=== PATIENT | male | born 1980 | race Caucasian/White ===

== ENCOUNTER 2017-12-04 11:24 | Emergency (ER) | payer SELFPAY ==
[~2017-12-04] VITALS: Ht 162.6 cm; Wt 104.3 kg
--- NOTE | 2017-12-04 12:00 | ED Abdominal Pain ---
General Chief Complaint: Rect Problems Stated Complaint: RECTAL PAIN/CONSTIPATED Source of Information: Patient, Family Exam Limitations: No Limitations History of Present Illness Date Seen by Provider: Dec 04, 2017 Time Seen by Provider: 11:55 Initial Comments Patient is a 37-year-old male who presents to the emergency room with complaints of rectal pain, blood on the toilet paper with wiping, and intermittent constipation for 5 months. He is new to the area from [facility]. He reports that he moved here 2 days ago. And in [place] he had a colonoscopy 10 days ago for this problem. He reports that he had polyps the doctor there was concerned that they may be precancerous and took a sample for testing. He is unsure of the results but wants to get the physician established here. He is accompanied by a brother and his [id number]. Denies any abdominal pain, nausea, vomiting, diarrhea. Timing/Duration: Other Severity/Quality: Mild (5 months) Radiation: No Radiation Associated Symptoms: Denies Symptoms Allergies and Home Medications Allergies Coded Allergies: No Known Drug Allergies (Unverified , 12/04/17) Home Medications No Active Prescriptions or Reported Meds Patient Home Medication List Home Medication List Reviewed: Yes Review of Systems Constitutional: see HPI; No chills, No fever Gastrointestinal: See HPI, Blood Streaked Stools, Constipated, Rectal Bleeding All Other Systems Reviewed Negative Unless Noted: Yes Past Pblypts-Znoxka-Afypkt Hx Past Med/Social Hx: Reviewed Nursing Past Med/Soc Hx Patient Social History Alcohol Use: Denies Use Recreational Drug Use: No Smoking Status: Never a Smoker Recent Foreign Travel: No Contact w/Someone Who Travel: No Past Medical History Surgeries: Yes (colonoscopy) Respiratory: No Cardiac: No Neurological: No Genitourinary: No Gastrointestinal: Yes Polyps, Ulcer Musculoskeletal: No Endocrine: No HEENT: No Cancer: No Integumentary: No Blood Disorders: No Family Medical History Reviewed Nursing Family Hx Physical Exam Vital Signs Vital Signs - First Documented 12/04/17 11:45 Temp 98.2 Pulse 86 Resp 16 B/P (MAP) 122/71 (88) Pulse Ox 98 Capillary Refill : Height/Weight/BMI Height: '" Weight: lbs. oz. kg; BMI Method: General Appearance: WD/WN, no apparent distress Respiratory: chest non-tender, lungs clear, normal breath sounds, no respiratory distress, no accessory muscle use Cardiovascular: regular rate, rhythm, no edema, no gallop, no JVD, no murmur Gastrointestinal: normal bowel sounds, non tender, soft, no organomegaly, no pulsatile mass Rectal: normal exam, normal rectal tone, heme positive stool (fecal occult test was positive. There was no gross blood noted.); No hemorrhoids, No mass; other (examination was completed by myself and assisted by Sulema Camacho RN) Neurologic/Psychiatric: alert, normal mood/affect, oriented x 3 Skin: normal color, warm/dry Progress/Results/Core Measures Results/Orders Lab Results Laboratory Tests Test 12/04/17 12:10 Range/Units White Blood Count 9.5 4.3-11.0 10^3/uL Red Blood Count 5.34 4.35-5.85 10^6/uL Hemoglobin 12.4 L 13.3-17.7 G/DL Hematocrit 39 L 40-54 % Mean Corpuscular Volume 74 L 80-99 FL Mean Corpuscular Hemoglobin 23 L 25-34 PG Mean Corpuscular Hemoglobin Concent 32 32-36 G/DL Red Cell Distribution Width 18.6 H 10.0-14.5 % Platelet Count 412 H 130-400 10^3/uL Mean Platelet Volume 9.1 7.4-10.4 FL Neutrophils (%) (Auto) 64 42-75 % Lymphocytes (%) (Auto) 23 12-44 % Monocytes (%) (Auto) 8 0-12 % Eosinophils (%) (Auto) 6 0-10 % Basophils (%) (Auto) 0 0-10 % Neutrophils # (Auto) 6.0 1.8-7.8 X 10^3 Lymphocytes # (Auto) 2.2 1.0-4.0 X 10^3 Monocytes # (Auto) 0.7 0.0-1.0 X 10^3 Eosinophils # (Auto) 0.5 H 0.0-0.3 10^3/uL Basophils # (Auto) 0.0 0.0-0.1 10^3/uL Sodium Level 139 135-145 MMOL/L Potassium Level 4.4 3.6-5.0 MMOL/L Chloride Level 104 98-107 MMOL/L Carbon Dioxide Level 26 21-32 MMOL/L Anion Gap 9 5-14 MMOL/L Blood Urea Nitrogen 12 7-18 MG/DL Creatinine 0.75 0.60-1.30 MG/DL Estimat Glomerular Filtration Rate > 60 BUN/Creatinine Ratio 16 Glucose Level 93 70-105 MG/DL Calcium Level 9.8 8.5-10.1 MG/DL Corrected Calcium 9.5 8.5-10.1 MG/DL Total Bilirubin 0.3 0.1-1.0 MG/DL Aspartate Amino Transf (AST/SGOT) 14 5-34 U/L Alanine Aminotransferase (ALT/SGPT) 24 0-55 U/L Alkaline Phosphatase 86 40-136 U/L Total Protein 8.3 H 6.4-8.2 GM/DL Albumin 4.4 3.2-4.5 GM/DL My Orders Orders - [email or web address] Cbc With Automated Diff (12/04/17 11:54) Comprehensive Metabolic Panel (12/04/17 11:54) Fecal Occult Bedside (12/04/17 11:54) Vital Signs/I&O 12/04/17 11:45 Temp 98.2 Pulse 86 Resp 16 B/P (MAP) 122/71 (88) Pulse Ox 98 Progress Progress Note : Time: 13:20 Progress Note I have seen and evaluated the patient. He informed me that he had an appointment with [facility] tomorrow to discuss further care and follow- up from his colonoscopy that he had. He has all the records from [place] but he did not bring them to the emergency room today. I informed him of laboratory findings, fecal occult testing, he agrees with close follow-up and agrees her plans of discharge. Return precautions were given Departure Impression Primary Impression: GI bleed Additional Impression: Rectal bleeding Disposition: 01 HOME, SELF-CARE Condition: Stable/Unchanged Departure-Patient Inst. Decision time for Depature: 13:21 Referrals: CHARO VALENTIN XAVIER M MD NO,LOCAL PHYSICIAN (PCP) Primary Care Physician Patient Instructions: Gastrointestinal Bleeding (DC) Add. Discharge Instructions: Follow-up with Dr. Barreto within 1 week for recheck. Follow up with [facility] as scheduled tomorrow. Call first thing tomorrow morning for an appointment time with Dr. Barreto. I have seen your emergency room records to both physicians. Return back to the emergency room for any worsening symptoms, increased rectal bleeding, pain, nausea, vomiting, or any other concerns as needed. All discharge instructions reviewed with patient and/or family. Voiced understanding. Scripts No Active Prescriptions or Reported Meds Copy Copies To 1: CHARO VALENTIN DO Copies To 2: JOSE BARRETO MD, TRAVIS Dec 04, 2017 11:59
[2017-12-04 12:22] LABS: BASOPHILS % (AUTO) 0 % (0-10); EOSINOPHILS # (AUTO) 0.5 10^3/uL (0.0-0.3); EOSINOPHILS % (AUTO) 6 % (0-10); HEMATOCRIT 39 % (40-54); HEMOGLOBIN 12.4 G/DL (13.3-17.7); LYMPHOCYTES # (AUTO) 2.2 X 10^3 (1.0-4.0); LYMPHOCYTES % (AUTO) 23 % (12-44); MEAN CORPUSCULAR HEMOGLOBIN 23 PG (25-34); MEAN CORPUSCULAR HGB CONC 32 G/DL (32-36); MEAN CORPUSCULAR VOLUME 74 FL (80-99); MEAN PLATELET VOLUME 9.1 FL (7.4-10.4); MONOCYTES # (AUTO) 0.7 X 10^3 (0.0-1.0); MONOCYTES % (AUTO) 8 % (0-12); NEUTROPHILS % (AUTO) 64 % (42-75); PLATELET COUNT 412 10^3/uL (130-400); RED BLOOD COUNT 5.34 10^6/uL (4.35-5.85); RED CELL DISTRIBUTION WIDTH 18.6 % (10.0-14.5); WHITE BLOOD COUNT 9.5 10^3/uL (4.3-11.0)
[2017-12-04 12:44] LABS: ALANINE AMINOTRANSFERASE 24 U/L (0-55); ALBUMIN 4.4 GM/DL (3.2-4.5); ALKALINE PHOSPHATASE 86 U/L (40-136); BILIRUBIN,TOTAL 0.3 MG/DL (0.1-1.0); BUN/CREATININE RATIO 16; CALCIUM 9.8 MG/DL (8.5-10.1); CARBON DIOXIDE 26 MMOL/L (21-32); CHLORIDE 104 MMOL/L (98-107); CREATININE SERUM 0.75 MG/DL (0.60-1.30); GFR ESTIMATED > 60; GLUCOSE 93 MG/DL (70-105); POTASSIUM 4.4 MMOL/L (3.6-5.0); SODIUM 139 MMOL/L (135-145); TOTAL PROTEIN 8.3 GM/DL (6.4-8.2)
[2017-12-04 13:43] VITALS: BP 128/65
== END 2017-12-04 13:43 | disposition home or self-care (01) ==
LOC: ER 11:25
DX: K92.2 Gastrointestinal hemorrhage, unspecified (principal); Z87.19 Personal history of other diseases of the digestive system
CPT/HCPCS: 36415; 80053; 85025; 99283

== ENCOUNTER 2017-12-20 10:14 | Inpatient (IN) | payer OTHER ==
[~2017-12-20] VITALS: Ht 170.2 cm; Wt 119.3 kg
[2017-12-20] MEDS ORDERED: ceFAZolin 2 GM IV Premixed 50 ML IV ONE (10:30)
[2017-12-20] MEDS ORDERED: metroNIDAZOLE 500MG/100ML IVPB 100 ML IV ONE (10:30)
[2017-12-20] MEDS ORDERED: LIDOCAINE/EPI 1%-1:200,000 (XYLOCAINE) 10 ML VIAL ONE (10:42)
[2017-12-20] MEDS: LACTATED RINGERS 1,000 ML IV PRN ×4 (10:45→15:00)
[2017-12-20] MEDS ORDERED: proPOfol 200 MG/20 ML (DIPRIVAN) VIAL IV ONE (10:52)
[2017-12-20] MEDS ORDERED: LIDOCAINE PF 2% 5 ML (XYLOCAINE) VIAL ONE (10:52)
[2017-12-20] MEDS ORDERED: ROCURONIUM 10 MG/ML 5 ML SYRINGE IV ONE ×2 (10:52→13:14)
[2017-12-20] MEDS ORDERED: LACTATED RINGERS 1,000 ML IV ONE ×4 (10:52→14:52)
[2017-12-20] MEDS ORDERED: fentaNYL INJECTION 100 MCG/2 ML AMP ONE ×2 (10:52→14:46)
[2017-12-20] MEDS ORDERED: MIDAZOLAM 2 MG/2 ML (VERSED) VIAL ONE (10:52)
[2017-12-20] MEDS ORDERED: ONDANSETRON 4 MG/2 ML (SDV) Z0FRAN ONE ×2 (10:52→15:24)
[2017-12-20] MEDS ORDERED: DEXAMETHASONE 10 MG/ML (DECADRON) 1 ML VIAL ONE (10:54)
[2017-12-20] MEDS ORDERED: SEVOFLURANE (ULTANE) 15 ML INHAL SOLN ONE ×13 (10:54→14:52)
--- NOTE | 2017-12-20 11:54 | Progress Note-Pre Operative ---
Pre-Operative Progress Note H&P Reviewed The H&P was reviewed, patient examined and no changes noted. Time Seen by Provider: 11:49 Date H&P Reviewed: Dec 20, 2017 Time H&P Reviewed: 11:52 Pre-Operative Diagnosis: Suspected Left sided colon CA FRANCES MATTHEWS DO Dec 20, 2017 11:54
[2017-12-20] MEDS ORDERED: GLYCOPYRROLATE 0.2 MG/ML (ROBINUL) 2 ML VIAL ONE (14:48)
[2017-12-20] MEDS ORDERED: NEOSTIGMINE 1 MG/ML 5 ML SYRINGE ONE (14:48)
[2017-12-20] MEDS ORDERED: HYDROmorphone 2 MG/ML VIAL (DILAUDID) ONE (15:24)
[2017-12-20] MEDS ORDERED: ROPIVACAINE 5MG/ML 30ML VIAL ONE (15:28)
--- NOTE | 2017-12-20 15:58 | Progress Note-Post Operative ---
Post-Operative Progess Note Surgeon (s)/Medical Practice Administrator (s) Surgeon FRANCES MATTHEWS DO Medical Practice Administrator: Amilcar Pre-Operative Diagnosis Suspected Left sided colon CA Post-Operative Diagnosis Same pending pathology Procedure & Operative Findings Date of Procedure 12/20/17 Procedure Performed/Findings 1. Colonoscopy 2. Lap Hand assisted Colectomy, switched to Open LAR with primary anastomosis Anesthesia Type GET Estimated Blood Loss Estimated blood loss (mL): 100ml Specimens/Packing Specimens Removed sigmoid colon and portion of rectum FRANCES MATTHEWS DO Dec 20, 2017 15:58
[2017-12-20] MEDS ORDERED: HYDROmorphone 2 MG/ML VIAL (DILAUDID) IV ONE (16:00)
[2017-12-20] MEDS ORDERED: ceFAZolin 2 GM IV Premixed 50 ML IV SCH (16:00)
[2017-12-20] MEDS ORDERED: metroNIDAZOLE 500MG/100ML IVPB 100 ML IV SCH (16:00)
[2017-12-20] MEDS ORDERED: fentaNYL INJECTION 100 MCG/2 ML AMP IVP ONE (16:00)
[2017-12-20] MEDS ORDERED: ONDANSETRON 4 MG/2 ML (SDV) Z0FRAN IVP PRN ×2 (16:00)
[2017-12-20] MEDS ORDERED: MEPERIDINE (DEMEROL) INJ 50 MG/ML IVP ONE (16:00)
[2017-12-20] MEDS: KETOROLAC 30 MG/ML VIAL IVP PRN ×2 (16:13→22:07)
[2017-12-20 16:50] VITALS: BP 131/67
[2017-12-20] MEDS: LACTATED RINGERS 1,000 ML IV SCH ×2 (17:59→18:12)
[2017-12-20] MEDS ORDERED: morphine INJ 4 MG/ML 1 ML (VIAL/SYRINGE) ONE (18:03)
[2017-12-20] MEDS ORDERED: ENOXAPARIN 40 MG/0.4 ML (LOVENOX) SYR SC SCH (18:30)
[2017-12-20 19:10] VITALS: BP 120/67
[2017-12-20] MEDS: ceFAZolin 2 GM IV Premixed 50 ML IV SCH (20:04)
[2017-12-20] MEDS: morphine INJ 10 MG/ML 1ML (SYR OR VIAL) IVP PRN (20:07)
[2017-12-20] MEDS: metroNIDAZOLE 500MG/100ML IVPB 100 ML IV SCH (21:00)
[2017-12-21 00:08] VITALS: BP 117/59
[2017-12-21] MEDS: morphine INJ 10 MG/ML 1ML (SYR OR VIAL) IVP PRN (03:15)
[2017-12-21] MEDS: ceFAZolin 2 GM IV Premixed 50 ML IV SCH (03:15)
[2017-12-21] MEDS: LACTATED RINGERS 1,000 ML IV SCH ×3 (03:17→21:02)
[2017-12-21] MEDS: metroNIDAZOLE 500MG/100ML IVPB 100 ML IV SCH (03:50)
[2017-12-21 04:08] VITALS: BP 121/60
[2017-12-21] MEDS: KETOROLAC 30 MG/ML VIAL IVP PRN ×3 (06:31→18:40)
[2017-12-21 08:00] VITALS: BP 105/55
[2017-12-21] MEDS: PANTOPRAZOLE 40 MG (PROTONIX) VIAL IVP SCH (09:03)
[2017-12-21] MEDS: ACETAMINOPHEN 500 MG TAB (TYLENOL) PO PRN ×2 (09:04→16:47)
--- NOTE | 2017-12-21 11:46 | Anesthesia-General Post-Op ---
General Patient Condition Mental Status/LOC: Same as Preop Cardiovascular: Satisfactory Nausea/Vomiting: Absent Respiratory: Satisfactory Pain: Controlled Complications: Absent Post Op Complications Complications None Follow Up Care/Instructions Patient Instructions None needed. Anesthesia/Patient Condition Patient Condition Patient is doing well, no complaints, stable vital signs, no apparent adverse anesthesia problems. No complications reported per nursing. SHE BRADSHAW CRNA Dec 21, 2017 11:46
[2017-12-21 12:00] VITALS: BP 131/64
[2017-12-21 16:00] VITALS: BP 100/55
[2017-12-21] MEDS ORDERED: ENOXAPARIN 40 MG/0.4 ML (LOVENOX) SYR SC SCH (16:00)
--- NOTE | 2017-12-21 16:17 | Progress Note ---
Subjective Time Seen by Provider: 10:33 Subjective/Events-last exam Pt seen and examined, states he has abdominal pain. Tolerating liquids, no flatus or BM. His constantino was removed and has not had much output. Pain is only moderately controlled. Review of Systems General: No Chills, No Night Sweats Pulmonary: No Dyspnea, No Cough Objective Exam Vital Signs Date Time Temp Pulse Resp B/P (MAP) Pulse Ox O2 Delivery O2 Flow Rate FiO2 12/21/17 16:00 99.2 89 18 100/55 (70) 95 Room Air 12/21/17 12:00 97.3 70 20 131/64 (86) 97 Room Air 12/21/17 08:00 98.3 78 20 105/55 (72) 93 Room Air 12/21/17 08:00 Room Air 12/21/17 07:21 98 Nasal Cannula 3.00 12/21/17 04:08 98.0 83 18 121/60 (80) 96 Room Air 12/21/17 00:08 97.7 75 18 117/59 (78) 98 Room Air 12/20/17 20:00 Nasal Cannula 4.00 12/20/17 19:10 97.1 78 16 120/67 (84) 97 Room Air 12/20/17 17:00 Nasal Cannula 4.00 12/20/17 16:50 97.3 88 16 131/67 (88) 98 Room Air I & O 12/21/17 07:00 Intake Total 5450 ml Output Total 1150 ml Balance 4300 ml Capillary Refill : Less Than 3 Seconds General Appearance: WD/WN, Mild Distress Respiratory: Lungs Clear, Normal Breath Sounds, No Accessory Muscle Use, No Respiratory Distress Cardiovascular: Regular Rate, Rhythm Gastrointestinal: soft, tenderness (diffusely, but more at incision) Assessment/Plan Assessment/Plan Assessment/Plan S/P LAR for Suspected Colon CA Continue IVF, pain control, anti-emetics. Encourage IS and ambulation. Continue clears and ensure. Await return of bowel fxn. Clinical Quality Measures DVT/VTE Risk/Contraindication: Risk Factor Score Per Nursin RFS Level Per Nursing on Admit: 4+=Very High FRANCES MATTHEWS DO Dec 21, 2017 16:17
[2017-12-21] MEDS: ENOXAPARIN 40 MG/0.4 ML (LOVENOX) SYR SC SCH (16:47)
[2017-12-21 19:32] VITALS: BP 111/58
[2017-12-22] MEDS: KETOROLAC 30 MG/ML VIAL IVP PRN ×3 (00:11→16:08)
[2017-12-22 00:35] VITALS: BP 116/63
[2017-12-22 04:38] VITALS: BP 126/60
[2017-12-22] MEDS: ENOXAPARIN 40 MG/0.4 ML (LOVENOX) SYR SC SCH ×2 (04:44→16:09)
[2017-12-22] MEDS: ACETAMINOPHEN 500 MG TAB (TYLENOL) PO PRN ×3 (04:44→20:41)
--- NOTE | 2017-12-22 07:21 | OPERATIVE REPORT ---
DATE OF SERVICE: 12/20/2017 PREOPERATIVE DIAGNOSES: 1. Suspected left colon cancer. 2. Umbilical hernia. POSTOPERATIVE DIAGNOSES: 1. Suspected left colon cancer. 2. Umbilical hernia. 3. Pending pathology. PROCEDURES: 1. Colonoscopy. 2. Laparoscopic hand-assisted low anterior resection switched to open. SURGEON: Frances Page DO REGIONAL OPERATIONS DIRECTOR: Don Fitzgerald DO ANESTHESIA: General endotracheal tube. SPECIMEN: Left colon. BLOOD LOSS: Approximately 100 mL. FLUIDS: Per anesthesia. POSTOPERATIVE CONDITION: Stable. INDICATION FOR PROCEDURE: The patient is a 37-year-old male who came from [place] where he had some confusing information. He was told that he had cancer, he did not have cancer and then he had precancer, but he did have a pathology diagnosis of cancer. So, it was elected to do a colonoscopy first prior to most likely a colon resection because the patient also thought that the colonoscopy was not able to get by a mass. FINDINGS: The patient had a large ulcerating mass in the left colon looked to be about 20 cm from the anal verge. I was able to get the colonoscopy all the way to the right side, did not see any other synchronous lesions or large polyps. The patient had a left colon removed down to the retroperitoneal reflection. This is a low anterior resection. PROCEDURE NOTE: After informed consent was obtained, the patient was brought to the operating room. He was intubated and then put on to his left side to do a colonoscopy. I inserted the scope, pushed in about 20 cm, saw an ulcerating lesion, which went for about 10 cm, was able to barely get pass this and then pushed all the way to the cecum, took a picture of appendiceal orifice, noted the ileocecal valve and then slowly withdrew the scope, looking at up the ascending colon to hepatic flexure, down the transverse colon to the splenic flexure into the descending colon and then down at about 30 cm saw the top of this mass and then at about 20 cm saw the bottom of this mass, did not really see any other diverticula, possibly some small internal hemorrhoids. Removed the scope and then proceeded to the colon resection. The patient was placed in lithotomy position. His belly was sterilely prepped and draped in normal fashion. Made an incision through the midline right just around the umbilicus. He did have an incarcerated umbilical hernia, went down to the skin into the subcutaneous tissue, deepened down to subcutaneous tissue with Bovie electrocautery down to fascia. Fascia incised with Bovie electrocautery, then able to get in the belly, moved the intestine out of the way. Placed the port in the right lower quadrant using [employer] system, first beginning an incision in the abdominal wall with a #15 blade, carried down through the skin and then advancing the VersaStep needle under direct visualization, watched it come in and then placed the 12 mm port. Then placed the hand port and wound protector in the midline and then placed the GelPort and created pneumoperitoneum and placed another 12 mm port in the left upper quadrant under direct visualization. At this point, I then placed my hand in the abdomen and I could feel the mass, went about 6 or 8 cm above this, and started dissecting under the colon, grasping the mesentery with LigaSure, clamping, coagulating and transecting, able to get a hold around this area and then placed an Endo-MICHELLE 60 mm across this colon, clamped and fired thereby transecting this. There was lot of fat around the colon. It was very difficult to visualize, tried coming down below the mass. He had some adhesions from this mass, able to get around down below almost right at the retroperitoneal reflection. [place] like I got under the colon and placed another MICHELLE across this. Looked like we had a good seal and then started taking the rest of the colon off coming across the mesentery with the LigaSure, clamping, coagulating and transecting coming down trying to stay midline. There were some adhesions in the right, these were carefully pushed away with blunt dissection, continued to come across the mesentery to free up this portion of colon in a stepwise fashion clamping, coagulating and transecting. Unfortunately, as I got down lower, noted a portion of intestine that was open and it appeared that when we had placed at the distal MICHELLE, it had ripped the intestine. At this point, I then elected to make the incision bigger and increased it from down towards the pubis to then do an open incision, continued to take off the colon with the LigaSure, removed it. Once we were able remove it, then able to grasp this part of the colon and throw a contour stapler across. Made sure all sides were cleared and then clamped and fired and then pulled the portion that had split open through this so that we got all of this and removed this, passed the colon off the table and sent to pathology. Did a leak test of the lower stump by placing a proctoscope and then blowing air. Unfortunately, it leaked, but able to then see this, visualize it and close it with 2-0 Vicryl pop-offs. Three sutures were used to close it. Leak tested it again and there was no leak. At this point, then went to the portion of sigmoid colon and descending colon was very floppy in this area, felt we could get this all the way down into the pelvis. So placed a pursestring applicator across this proximal portion of colon, clamped and fired creating a pursestring cut off the distal portion and then able to open this up and place the anvil into this proximal portion and tied the intestine around this anvil by the pursestring previously created. Dr. Fitzgerald then went down below and dilated with a 25, 28 and 31 dilator and then he advanced the ILS 29 stapler to the stump, could see this and then brought out the trocar through the stump. We then connected the anvil to the trocar, tightened this down all the way, held for 30 seconds then fired, held 20 seconds and then he turned 3/4 turn and then pulled this out gently. At this point, we then leak tested, unfortunately there was a leak on top, if you are looking straight down, the most anterior part, closed this with two 3-0 Vicryl pop-offs. Checked and then we found a leak at a 9 o'clock position if you are looking from below, used some more 3-0 Vicryl pop-offs and then found one more area with some very small air bubbles leaking out, closed with 3-0 Vicryl pop-offs, leak tested and finally no air bubbles were seen. The anastomosis was not on any pull, it was very loose and easily attached. Copiously irrigated with warm normal saline, suctioned this out, brought the omentum down into the pelvis and at this point then elected to close the incision, removed the 2 mm trocar ports, closed the midline incision with a #1 double stranded PDS suture, one from the superior portion and one from the inferior portion, running together and meet in the middle and then tying, and thus also repairing the umbilical hernia primarily with sutures. I then closed the skin with marian. I then closed the two 11 mm trocar port incision with marian as well. Area was cleaned and dried, dressing was placed and the patient then transferred to recovery room in stable condition. Sponge, instruments and needle counts correct at the end of the case. Job ID: [id number] DocumentID: [id number] Dictated Date: 12/21/2017 18:35:35 Surveillance Investigator Date: 12/22/2017 01:10:18 Dictated By: FRANCES PAGE DO
[2017-12-22 08:00] VITALS: BP 120/66
[2017-12-22] MEDS: PANTOPRAZOLE 40 MG (PROTONIX) VIAL IVP SCH (08:20)
[2017-12-22] MEDS: morphine INJ 10 MG/ML 1ML (SYR OR VIAL) IVP PRN (11:28)
[2017-12-22 12:00] VITALS: BP 127/57
[2017-12-22 16:15] VITALS: BP 121/67
--- NOTE | 2017-12-22 17:18 | Progress Note ---
Subjective Time Seen by Provider: 16:33 Subjective/Events-last exam Pt seen and examined, had flatus today and is tolerating clears. Only taking toradol and tylenol. Review of Systems General: No Chills, No Night Sweats Pulmonary: No Dyspnea, No Cough Cardiovascular: No: Chest Pain, Palpitations Gastrointestinal: No: Nausea, Vomiting Objective Exam Vital Signs Date Time Temp Pulse Resp B/P (MAP) Pulse Ox O2 Delivery O2 Flow Rate FiO2 12/22/17 16:15 98.3 89 20 121/67 (85) 97 Room Air 12/22/17 12:00 98.9 81 20 127/57 (80) 96 Room Air 12/22/17 08:00 97.8 83 20 120/66 (84) 96 Room Air 12/22/17 04:38 98.3 77 20 126/60 (82) 95 Room Air 12/22/17 00:35 98.6 89 20 116/63 (80) 93 Room Air 12/21/17 20:45 Room Air 12/21/17 19:32 98.8 83 20 111/58 (75) 93 Room Air I & O 12/22/17 07:00 Intake Total 2555 ml Output Total 775 ml Balance 1780 ml Capillary Refill : Less Than 3 Seconds General Appearance: WD/WN, Mild Distress Respiratory: Lungs Clear, Normal Breath Sounds, No Accessory Muscle Use, No Respiratory Distress Cardiovascular: Regular Rate, Rhythm Gastrointestinal: soft, tenderness (diffusely, but more at incision), other ( incisions are clean, dry, and intact) Assessment/Plan Assessment/Plan Assessment/Plan S/P LAR for Colon CA Continue IVF, pain control, anti-emetics. Encourage IS and ambulation. Will start regular diet, plan to d/c home in am. Clinical Quality Measures DVT/VTE Risk/Contraindication: Risk Factor Score Per Nursin RFS Level Per Nursing on Admit: 4+=Very High FRANCES MATTHEWS DO Dec 22, 2017 17:18
[2017-12-22] MEDS: LACTATED RINGERS 1,000 ML IV SCH ×2 (18:40→19:26)
[2017-12-22 20:39] VITALS: BP 120/57
[2017-12-23 00:22] VITALS: BP 125/66
[2017-12-23] MEDS: KETOROLAC 30 MG/ML VIAL IVP PRN (03:11)
[2017-12-23] MEDS: ENOXAPARIN 40 MG/0.4 ML (LOVENOX) SYR SC SCH (03:15)
[2017-12-23 04:30] VITALS: BP 126/69
[2017-12-23] MEDS: LACTATED RINGERS 1,000 ML IV SCH (06:19)
[2017-12-23] MEDS: ACETAMINOPHEN 500 MG TAB (TYLENOL) PO PRN ×2 (06:21→13:23)
[2017-12-23 08:00] VITALS: BP 124/75
[2017-12-23] MEDS: PANTOPRAZOLE 40 MG (PROTONIX) VIAL IVP SCH (09:10)
[2017-12-23] MEDS ORDERED: TRAM50TA2 PO (12:42)
--- NOTE | 2017-12-23 12:43 | Discharge Inst-Surgical ---
Discharge Inst-Surgical Depart Medication/Instructions New, Converted or Re-Newed RX: RX Given to Pt/Family Patient Instructions Follow up Appt: Make appointment for 1 week. Instructions: No lifting greater than 10 pounds. No strenuous activity. May shower in 24 hours, no tub bath or soaking. Use incentive spirometer at home as directed. No Smoking Skin/Wound Care: May remove bandages. You need to leave the marian in place; they will get removed in my office. Symptoms to Report: Appetite Changes, Extremity Discoloration, Numbness/Tingling, Swelling Increased , Bleeding Excessive, Eyesight Changes, Pain Increased, Urine Color Change, Constipation(Persistent), Fever over 101 degree F, Pain/Pressure in chest, Urinating Difficulty, Cough Up/Vomit Blood, Heart Beat Irreg/Pounding, Pain/ Pressure in jaw, Cramps in feet or legs, Lightheadedness, Pain/Pressure in shoulder, Diarrhea(Persistent), Memory Changes Suddenly, Questions/Concerns, Weight gain consecutive days, Dizziness/Fainting, Nausea/Vomiting, Shortness of Breath, Weight gain over 2 pounds If questions or concerns contact your physician Or seek help at emergency department. Activity Activity as Tolerated: Yes Activity Instructions: Avoid Pulling & Pushing, Avoid Stress to Incision Driving Instructions: No Driving/Refer to Dr. Gonsalez Discharge Diet: No Restrictions (avoid red meat) Diet After 24 Hours: Clear Liquid if Nauseous If Any Problems/Questions/Issu: Contact Your Physician, Go to Emergency Room Skin/Wound Care Infection Signs and Symptoms: Increased Redness, Foul Odor of Wound, Increased Drainage, Skin Itchy or Has a Rash, Increased Swelling, Temperature Above 101 F Bathing Instructions: Shower Stitches/[place]/Dermabond Dis: Care of FRANCES Silveira DO Dec 23, 2017 12:43
--- NOTE | 2017-12-23 12:45 | Progress Note ---
Subjective Date Seen by Provider: Dec 23, 2017 Time Seen by Provider: 12:05 Subjective/Events-last exam Went to see pt and he had just finished eating a solid breakfast. Reports that he has urinated and had a bowel movement today. He denies severe pain, nausea/ vomiting/diarrhea, or fevers/chills. He would like to go home. Review of Systems General: No Chills; Night Sweats; No Fatigue, No Malaise; Appetite HEENT: No Head Aches, No Dysphasia Pulmonary: No Dyspnea, No Cough Cardiovascular: No: Chest Pain, Palpitations, Edema, Lt Headedness Gastrointestinal: Abdominal Pain; No: Nausea, Vomiting, Diarrhea, Constipation , Hematochezia Genitourinary: No Dysuria, No Hematuria Musculoskeletal: No: neck pain, back pain Neurological: No: Weakness, Numbness, Incoordination, Confusion Focused Exam Time of Focused Exam: 12:05 Respiratory: Chest Non Tender, Lungs Clear, Normal Breath Sounds, No Accessory Muscle Use, No Respiratory Distress Cardiovascular: Regular Rate, Rhythm, No Edema, No Gallop, No JVD, No Murmur, Normal Peripheral Pulses Capillary Refill: Less Than 3 Seconds Peripheral Pulses: 2+ Dorsalis Pedis (R), 2+ Left Dors-Pedis (L), 2+ Radial Pulses (R), 2+ Radial Pulses (L) Skin: normal color, warm/dry (incisions clean, dry, intact); No diaphoresis Objective Exam Vital Signs Date Time Temp Pulse Resp B/P (MAP) Pulse Ox O2 Delivery O2 Flow Rate FiO2 12/23/17 08:00 97.8 75 20 124/75 (91) 96 Room Air 12/23/17 04:30 98.3 80 18 126/69 (88) 95 Room Air 12/23/17 00:22 97.3 81 20 125/66 (85) 96 Room Air 12/22/17 20:39 98.3 86 18 120/57 (78) 97 Room Air 12/22/17 20:30 Room Air 12/22/17 16:15 98.3 89 20 121/67 (85) 97 Room Air I & O 12/23/17 07:00 Intake Total 1090 ml Output Total 200 ml Balance 890 ml Capillary Refill : Less Than 3 Seconds General Appearance: WD/WN, Mild Distress Respiratory: Lungs Clear, Normal Breath Sounds, No Accessory Muscle Use, No Respiratory Distress Cardiovascular: Regular Rate, Rhythm Gastrointestinal: soft, tenderness (diffusely, but more at incision), other ( incisions are clean, dry, and intact) Assessment/Plan Assessment/Plan Assessment/Plan S/P LAR for Colon CA Will d/c pt home w/ instructions for f/u in [address] Page's clinic for staple removal and wound check. Pt given strict precautions and diet instructions. Also told pt that once his wounds are healed, likely 4 weeks after his f/u visit , he will need to see Oncology for his treatment of his colon CA. I agree with this note. Clinical Quality Measures DVT/VTE Risk/Contraindication: Risk Factor Score Per Nursin RFS Level Per Nursing on Admit: 4+=Very High BLAKE RUSSELL MEDICAL STUDENT Dec 23, 2017 12:45 FRANCES PAGE DO Dec 23, 2017 12:47
[2017-12-23 15:15] VITALS: BP 124/75
--- NOTE | 2018-01-04 12:00 | Discharge Summary ---
Diagnosis/Chief Complaint Date of Admission Dec 20, 2017 at 10:14 Date of Discharge Dec 23, 2017 at 15:15 Discharge Date: Dec 23, 2017 Admission Diagnosis Admission Diagnosis Suspected Colon CA Discharge Diagnosis Metastatic Colon Cancer - sigmoid Reason Hospital Visit Patient presented for colonoscopy and then probable colon resection. Patient had a complicated history and he was unsure whether he had cancer, even though there was a pathology diagnosis of cancer, patient also reports they were not able to get perform a full colonoscopy (couldn't get past one area) so unsure whether there were other synchronous lesions (which would be very rare). Therefore he was admitted for planned colonoscopy and probable colon resection for suspected colon cancer. Discharge Summary Discharge Physical Examination Allergies: Coded Allergies: No Known Drug Allergies (Unverified , 12/04/17) General Appearance: Alert, Mild Distress HEENT: PERRLA, EOMI Respiratory: Clear to Auscultation, Normal Air Movement Cardiovascular: Regular Rate, No Murmurs Abdominal: Soft Hospital Course Patient presented on 12/20/2017 for colonoscopy and planned probable colon resection. He had a colonoscopy performed and found unfortunately an ulcerating mass; therefore colon resection was proceeded with. Patient was subsequently sent to the floor and started on clear liquids and slowly increased his diet. He was on antibiotics, pain control and IV fluids. Patient improved over the next few days and was sent home on 12/23/2017 in stable condition. Unfortunately patient's pathology came back and showed 1 out of 32 lymph nodes positive this is therefore metastatic colon cancer. Discharge Instructions to patient/family Please see electronic discharge instructions given to patient. Discharge Medications Reviewed and agree with Discharge Medication list on patient's Discharge Instruction sheet Clinical Quality Measures DVT/VTE Risk/Contraindication: Risk Factor Score Per Nursin RFS Level Per Nursing on Admit: 4+=Very High FRANCES MATTHEWS DO Jan 04, 2018 12:00
== END 2017-12-23 15:15 | disposition home or self-care (01) | DRG 330 ==
LOC: 4TH 10:14 → SURG 10:15 → 4TH 12:28
PROVIDERS: ADMIT Surgery; ATTEND Surgery
PROC: 0WQF0ZZ Repair Abdominal Wall, Open Approach (ICD-10-PCS; 2017-12-20)
PROC: 0DJD8ZZ Inspection of Lower Intestinal Tract, Via Natural or Artificial Opening Endoscopic (ICD-10-PCS; 2017-12-20)
PROC: 0DTN0ZZ Resection of Sigmoid Colon, Open Approach (ICD-10-PCS; principal; 2017-12-20 11:55)
DX: C18.7 Malignant neoplasm of sigmoid colon (principal); K42.0 Umbilical hernia with obstruction, without gangrene; K62.5 Hemorrhage of anus and rectum; Z68.41 Body mass index [BMI] 40.0-44.9, adult; K64.8 Other hemorrhoids; E66.01 Morbid (severe) obesity due to excess calories; Z53.31 Laparoscopic surgical procedure converted to open procedure
CPT/HCPCS: 36415; 81275; 86850; 86900; 86901; 88305; 88309; 88341; 88342; 88381; 94664; 94760

== ENCOUNTER 2017-12-26 21:28 | Emergency (ER) | payer OTHER ==
[~2017-12-26] VITALS: Ht 170.2 cm; Wt 119.3 kg
[~2017-12-26 21:28] MED LIST: TRAM50TA2 PO
--- NOTE | 2017-12-26 22:06 | ED Integumentary General ---
General Chief Complaint: Skin/Wound Problems Stated Complaint: POST OP/WOUND LEAKING Source: patient Exam Limitations: no limitations History of Present Illness Date Seen by Provider: Dec 26, 2017 Time Seen by Provider: 21:45 Initial Comments Patient is a 37-year-old male who presents to the emergency room with complaints of drainage from his incisional site. He reports that he had a colon resection and a hernia repair by Dr. Sampson on 12/19/17. He reports that his wound started leaking this morning and has increased throughout the day. He denies pain, fever, nausea. His bowel movements have been normal. Incision is intact on arrival to the emergency room. Timing/Duration: this morning Location: torso (abdomen) Associated Symptoms: other (drainage) Allergies and Home Medications Allergies Coded Allergies: No Known Drug Allergies (Unverified , 12/04/17) Home Medications Tramadol HCl 50 Mg Tablet, 50 MG PO Q8H Prescribed by: FRANCES MATTHEWS on 12/23/17 1242 Patient Home Medication List Home Medication List Reviewed: Yes Review of Systems Review of Systems Constitutional: see HPI; No chills, No fever Skin: see HPI, other (drainage from incisional site.) All Other Systems Reviewed Negative Unless Noted: Yes Past Jhcqwzx-Ceyjpq-Fuqhmu Hx Past Med/Social Hx: Reviewed Nursing Past Med/Soc Hx Patient Social History Recent Foreign Travel: No Contact w/Someone Who Travel: No Recent Hopitalizations: No Seasonal Allergies Seasonal Allergies: No Past Medical History Surgeries: No Respiratory: No Cardiac: No Neurological: No Genitourinary: No Gastrointestinal: Yes (POSSIBLE COLON CANCER) Gastrointestinal Bleed, Polyps, Ulcer Musculoskeletal: No Endocrine: No HEENT: No Cancer: Yes (POSSIBLE COLON) Psychosocial: No Integumentary: No Blood Disorders: No Family Medical History Reviewed Nursing Family Hx Diabetes mellitus 19 FATHER Physical Exam Vital Signs Vital Signs - First Documented 12/26/17 22:26 Temp 99.7 Pulse 84 Resp 17 B/P (MAP) 126/70 (88) Capillary Refill : General Appearance: WD/WN, no apparent distress Cardiovascular: normal peripheral pulses, regular rate, rhythm, no edema, no gallop, no JVD, no murmur Respiratory: chest non-tender, lungs clear, normal breath sounds, no respiratory distress, no accessory muscle use Gastrointestinal: normal bowel sounds, soft, no organomegaly, no pulsatile mass , tenderness (minimal tenderness to incision site.) Neurologic/Psychiatric: alert, normal mood/affect, oriented x 3 Skin: normal color, warm/dry Skin Problem Location: other (abdomen vertical incision site) Skin Problem Character: drainage (serosanguineous drainage), erythema (minimal erythema around the incision site.) Progress/Results/Core Measures Results/Orders Lab Results Laboratory Tests Test 12/26/17 22:22 Range/Units White Blood Count 12.5 H 4.3-11.0 10^3/uL Red Blood Count 4.75 4.35-5.85 10^6/uL Hemoglobin 11.1 L 13.3-17.7 G/DL Hematocrit 35 L 40-54 % Mean Corpuscular Volume 73 L 80-99 FL Mean Corpuscular Hemoglobin 23 L 25-34 PG Mean Corpuscular Hemoglobin Concent 32 32-36 G/DL Red Cell Distribution Width 17.4 H 10.0-14.5 % Platelet Count 459 H 130-400 10^3/uL Mean Platelet Volume 8.9 7.4-10.4 FL Neutrophils (%) (Auto) 70 42-75 % Lymphocytes (%) (Auto) 17 12-44 % Monocytes (%) (Auto) 8 0-12 % Eosinophils (%) (Auto) 5 0-10 % Basophils (%) (Auto) 0 0-10 % Neutrophils # (Auto) 8.8 H 1.8-7.8 X 10^3 Lymphocytes # (Auto) 2.2 1.0-4.0 X 10^3 Monocytes # (Auto) 1.0 0.0-1.0 X 10^3 Eosinophils # (Auto) 0.6 H 0.0-0.3 10^3/uL Basophils # (Auto) 0.0 0.0-0.1 10^3/uL Sodium Level 136 135-145 MMOL/L Potassium Level 3.7 3.6-5.0 MMOL/L Chloride Level 99 98-107 MMOL/L Carbon Dioxide Level 24 21-32 MMOL/L Anion Gap 13 5-14 MMOL/L Blood Urea Nitrogen 11 7-18 MG/DL Creatinine 0.74 0.60-1.30 MG/DL Estimat Glomerular Filtration Rate > 60 BUN/Creatinine Ratio 15 Glucose Level 98 70-105 MG/DL Calcium Level 9.7 8.5-10.1 MG/DL Corrected Calcium 9.8 8.5-10.1 MG/DL Total Bilirubin 0.4 0.1-1.0 MG/DL Aspartate Amino Transf (AST/SGOT) 14 5-34 U/L Alanine Aminotransferase (ALT/SGPT) 27 0-55 U/L Alkaline Phosphatase 67 40-136 U/L Total Protein 7.6 6.4-8.2 GM/DL Albumin 3.9 3.2-4.5 GM/DL My Orders Orders - TRACI PORTER Cbc And Manual Diff (12/26/17 21:55) Comprehensive Metabolic Panel (12/26/17 21:55) Wound Culture (12/26/17 21:55) Vital Signs/I&O 12/26/17 22:26 Temp 99.7 Pulse 84 Resp 17 B/P (MAP) 126/70 (88) Progress Progress Note : Time: 22:58 Progress Note I have seen and evaluated the patient. I am going to be treating for cellulitis due to the erythema and slight elevated white count. I patient of laboratory findings. Instructed to take the entire course of antibiotics. He agrees with plans for care, plans for discharge, return precautions were given. Departure Impression Primary Impression: Cellulitis Disposition: 01 HOME, SELF-CARE Condition: Stable/Unchanged Departure-Patient Inst. Decision time for Depature: 22:56 Referrals: CHARO VALENTIN XAVIER M MD NO,LOCAL PHYSICIAN (PCP) Primary Care Physician Patient Instructions: Cellulitis (Skin Infection), Adult (DC) Add. Discharge Instructions: Take medication as directed. Follow-up with Dr. Sampson office by calling first thing tomorrow morning and letting them know that she was seen in the emergency room. Is very important that she follow-up with Dr. Sampson tomorrow. Follow up with her primary care provider within 1 week for recheck. Return back to the emergency room for any worsening symptoms or concerns as needed. All discharge instructions reviewed with patient and/or family. Voiced understanding. Scripts Cephalexin (Keflex) 500 Mg Capsule 500 MG PO BID for 10 Days, #20 CAP Prov: TRACI PORTER 12/26/17 TRACI PORTER Dec 26, 2017 22:06
[2017-12-26 22:33] LABS: BASOPHILS % (AUTO) 0 % (0-10); EOSINOPHILS # (AUTO) 0.6 10^3/uL (0.0-0.3); EOSINOPHILS % (AUTO) 5 % (0-10); HEMATOCRIT 35 % (40-54); HEMOGLOBIN 11.1 G/DL (13.3-17.7); LYMPHOCYTES # (AUTO) 2.2 X 10^3 (1.0-4.0); LYMPHOCYTES % (AUTO) 17 % (12-44); MEAN CORPUSCULAR HEMOGLOBIN 23 PG (25-34); MEAN CORPUSCULAR HGB CONC 32 G/DL (32-36); MEAN CORPUSCULAR VOLUME 73 FL (80-99); MEAN PLATELET VOLUME 8.9 FL (7.4-10.4); MONOCYTES % (AUTO) 8 % (0-12); NEUTROPHILS # (AUTO) 8.8 X 10^3 (1.8-7.8); NEUTROPHILS % (AUTO) 70 % (42-75); PLATELET COUNT 459 10^3/uL (130-400); RED BLOOD COUNT 4.75 10^6/uL (4.35-5.85); RED CELL DISTRIBUTION WIDTH 17.4 % (10.0-14.5); WHITE BLOOD COUNT 12.5 10^3/uL (4.3-11.0)
[2017-12-26 22:47] LABS: ALANINE AMINOTRANSFERASE 27 U/L (0-55); ALBUMIN 3.9 GM/DL (3.2-4.5); ALKALINE PHOSPHATASE 67 U/L (40-136); BILIRUBIN,TOTAL 0.4 MG/DL (0.1-1.0); BUN/CREATININE RATIO 15; CALCIUM 9.7 MG/DL (8.5-10.1); CARBON DIOXIDE 24 MMOL/L (21-32); CHLORIDE 99 MMOL/L (98-107); CREATININE SERUM 0.74 MG/DL (0.60-1.30); GFR ESTIMATED > 60; GLUCOSE 98 MG/DL (70-105); POTASSIUM 3.7 MMOL/L (3.6-5.0); SODIUM 136 MMOL/L (135-145); TOTAL PROTEIN 7.6 GM/DL (6.4-8.2)
[2017-12-26 22:56] LABS: BAND NEUTROPHILS 5 %; BASOPHILS % (MANUAL) 0 %; EOSINOPHILS % (MANUAL) 4 %; LYMPHOCYTES % (MANUAL) 24 %; MICROCYTOSIS SLIGHT; MONOCYTES % (MANUAL) 4 %; NEUTROPHILS % (MANUAL) 63 %
[2017-12-26] MEDS ORDERED: CEPH-507 PO (22:57)
[2017-12-26] MEDS ORDERED: CEPHALEXIN 250 MG (KEFLEX) CAP PO ONE (23:00)
[2017-12-26 23:29] VITALS: BP 126/70
== END 2017-12-26 23:30 | disposition home or self-care (01) ==
LOC: EDUNIT# 21:28 → ER 21:29
DX: T81.4XXA Infection following a procedure, initial encounter (principal); L03.311 Cellulitis of abdominal wall; K21.9 Gastro-esophageal reflux disease without esophagitis; Z90.49 Acquired absence of other specified parts of digestive tract; Z98.890 Other specified postprocedural states; Z86.010 Personal history of colon polyps
CPT/HCPCS: 36415; 80053; 85007; 85027; 87070; 87077; 87186; 87205; 99283

== ENCOUNTER 2018-01-04 21:57 | Emergency (ER) | payer SELFPAY ==
[~2018-01-04 21:57] MED LIST changes: +CEPH-507 PO
== END 2018-01-04 23:03 | disposition left against medical advice (07) ==
LOC: EDUNIT# 21:57 → ER 21:59
DX: J18.9 Pneumonia, unspecified organism (principal); R07.89 Other chest pain

== ENCOUNTER 2018-02-23 08:56 | Outpatient (CLI) | payer OTHER ==
[~2018-02-23] VITALS: Ht 170.2 cm; Wt 114.4 kg
[~2018-02-23 08:56] MED LIST changes: -ACHD5005 PO; -BARIUM SUSPENSION 2.1% (VANILLA SILQ) 450 ML PO ONE; -IOHEXOL 350 MG/ML 100 ML (OMNIPAQUE 350) VIAL IV ONE; -NS 250 ML (IVPB) BAG IV ONE; -RECEIVED CONTRAST (Hold Metformin) IV SCH
== END 2018-02-23 09:45 | disposition home or self-care (01) ==
LOC: PREOP 08:56
PROVIDERS: ATTEND Surgery
DX: Z01.818 Encounter for other preprocedural examination (principal)
CPT/HCPCS: 87081

== ENCOUNTER → 2018-02-23 | Outpatient (CLI) | payer OTHER ==
[~2018-02-23] MED LIST changes: +ACHD5005 PO; +BARIUM SUSPENSION 2.1% (VANILLA SILQ) 450 ML PO ONE; +IOHEXOL 350 MG/ML 100 ML (OMNIPAQUE 350) VIAL IV ONE; +NS 250 ML (IVPB) BAG IV ONE; +RECEIVED CONTRAST (Hold Metformin) IV SCH
--- NOTE | 2018-02-23 12:45 | Diagnostic Imaging Report ---
PROCEDURE: CT chest with contrast, CT abdomen and pelvis with and without contrast. TECHNIQUE: Pre and post intravenous contrast axial imaging of the abdomen and pelvis and post contrast axial imaging of the chest were performed. INDICATION: Malignant neoplasm of the descending colon. COMPARISON: No prior studies are available for comparison. CT CHEST: No axillary lymphadenopathy is detected. No hilar or mediastinal lymphadenopathy is detected. No pericardial or pleural fluid is identified. Parenchymal dilation is without evidence of a discrete mass or nodule. There is linear scarring or atelectasis in the lingula. IMPRESSION: Unremarkable CT of the chest. There is no evidence of thoracic lymphadenopathy or pulmonary metastatic disease. CT ABDOMEN AND PELVIS: No discrete liver mass is identified. The gallbladder is unremarkable. No biliary duct dilatation is seen. The pancreas and spleen are unremarkable. No adrenal mass is identified. The kidneys are unremarkable. No calculi or hydronephrosis is seen. The aorta is non-aneurysmal. No central retroperitoneal or mesenteric lymphadenopathy is seen. Bowel loops are normal in caliber. There are post-surgical changes at the rectosigmoid junction. There is some mild surrounding inflammatory stranding present. No discrete mass is identified. No pelvic lymphadenopathy is seen. There is no free fluid. The bladder is unremarkable. IMPRESSION: Postsurgical changes to the colon. No abdominal or pelvic lymphadenopathy or evidence of metastatic disease is identified. Dictated by: Dictated on workstation # [id number]
== END ==
LOC: RAD 09:04
PROVIDERS: ATTEND Internal Medicine Hematology & Oncology
DX: C18.6 Malignant neoplasm of descending colon (principal); Z98.890 Other specified postprocedural states
CPT/HCPCS: 71260; 74178

== ENCOUNTER 2018-02-27 08:29 | Day surgery (SDC) | payer OTHER ==
[~2018-02-27] VITALS: Ht 170.2 cm; Wt 114.4 kg
[2018-02-27] MEDS ORDERED: LACTATED RINGERS 1,000 ML IV PRN (08:32)
[2018-02-27 08:45] VITALS: BP 127/81
[2018-02-27] MEDS ORDERED: ceFAZolin 2 GM IV Premixed 50 ML IV ONE (08:45)
[2018-02-27] MEDS ORDERED: HEParin (CENTRAL IV FLUSH) 500 UNIT/5 ML SYR ONE (09:00)
[2018-02-27] MEDS ORDERED: LIDOCAINE/EPI 1%-1:200,000 (XYLOCAINE) 10 ML VIAL ONE ×2 (09:00)
[2018-02-27] MEDS ORDERED: 0.9% SODIUM CHLORIDE PF INJ 20 ML VIAL ONE (09:01)
--- NOTE | 2018-02-27 09:36 | Progress Note-Pre Operative ---
Pre-Operative Progress Note H&P Reviewed The H&P was reviewed, patient examined and no changes noted. Time Seen by Provider: 09:32 Date H&P Reviewed: Feb 27, 2018 Time H&P Reviewed: 09:33 Pre-Operative Diagnosis: Venous Insufficiency, Colon CA FRANCES MATTHEWS DO Feb 27, 2018 09:36
[2018-02-27] MEDS ORDERED: proPOfol 200 MG/20 ML (DIPRIVAN) VIAL IV ONE ×2 (09:37→10:35)
[2018-02-27] MEDS ORDERED: LIDOCAINE PF 2% 5 ML (XYLOCAINE) VIAL ONE (09:37)
[2018-02-27] MEDS ORDERED: KETAMINE HCL 100 MG/ML 5 ML VIAL ONE (09:38)
[2018-02-27] MEDS ORDERED: MIDAZOLAM 2 MG/2 ML (VERSED) VIAL ONE ×2 (09:38)
--- NOTE | 2018-02-27 10:21 | Progress Note-Post Operative ---
Post-Operative Progess Note Surgeon (s)/Retail Department Reset (s) Surgeon FRANCES MATTHEWS DO Retail Department Reset: Ethan Schuster MSIII Pre-Operative Diagnosis Venous Insufficiency, Colon CA Post-Operative Diagnosis Same Procedure & Operative Findings Date of Procedure 02/27/18 Procedure Performed/Findings Shira-Cath insertion R SC vein, R ACW Anesthesia Type IV sedation Estimated Blood Loss Estimated blood loss (mL): scant Specimens/Packing Specimens Removed none FRANCES MATTHEWS DO Feb 27, 2018 10:21
[2018-02-27] MEDS ORDERED: ACHD5005 PO (10:23)
--- NOTE | 2018-02-27 10:25 | Discharge Inst-Surgical ---
Discharge Inst-Surgical Depart Medication/Instructions New, Converted or Re-Newed RX: RX Given to Pt/Family Patient Instructions Follow up Appt: Make appointment for 1 week. Instructions: No strenuous activity. May shower in 24 hours, no tub bath or soaking. Use incentive spirometer at home as directed. No Smoking Skin/Wound Care: May remove bandages in am. You need to leave the Dermabond on over incision it will fall off on its own. Symptoms to Report: Appetite Changes, Extremity Discoloration, Numbness/Tingling, Swelling Increased , Bleeding Excessive, Eyesight Changes, Pain Increased, Urine Color Change, Constipation(Persistent), Fever over 101 degree F, Pain/Pressure in chest, Urinating Difficulty, Cough Up/Vomit Blood, Heart Beat Irreg/Pounding, Pain/ Pressure in jaw, Cramps in feet or legs, Lightheadedness, Pain/Pressure in shoulder, Diarrhea(Persistent), Memory Changes Suddenly, Questions/Concerns, Weight gain consecutive days, Dizziness/Fainting, Nausea/Vomiting, Shortness of Breath, Weight gain over 2 pounds If questions or concerns contact your physician Or seek help at emergency department. Activity Activity as Tolerated: Yes Activity Instructions: Avoid Stress to Incision Driving Instructions: No Driving/Refer to Diet Discharge Diet: No Restrictions Diet After 24 Hours: Clear Liquid if Nauseous If Any Problems/Questions/Issu: Contact Your Physician, Go to Emergency Room Skin/Wound Care Infection Signs and Symptoms: Increased Redness, Foul Odor of Wound, Increased Drainage, Skin Itchy or Has a Rash, Increased Swelling, Temperature Above 101 F Bathing Instructions: Shower Stitches/Ciao/Dermabond Dis: Dermabond Ice Pack: Ice On and Off Site (as needed for pain) FRANCES MATTHEWS DO Feb 27, 2018 10:25
--- NOTE | 2018-02-27 10:26 | Diagnostic Imaging Report ---
INDICATION: Fluoroscopy during port placement. FINDINGS: Fluoroscopy was provided in the OR during port placement. 5 seconds of fluoroscopy was utilized. The right-sided chest wall port has its tip overlying the SVC. IMPRESSION: Fluoroscopy during port placement. Dictated by: Dictated on workstation # [id number]
--- NOTE | 2018-02-27 10:36 | Anesthesia-General Post-Op ---
MAC Patient Condition Mental Status/LOC: Same as Preop Cardiovascular: Satisfactory Nausea/Vomiting: Absent Respiratory: Satisfactory Pain: Controlled Complications: Absent Post Op Complications Complications None Follow Up Care/Instructions Patient Instructions None needed. Anesthesiology Discharge Order Discharge Order Patient is doing well, no complaints, stable vital signs, no apparent adverse anesthesia problems. No complications reported per nursing. SHE BRADSHAW CRNA Feb 27, 2018 10:36
[2018-02-27] MEDS ORDERED: ONDANSETRON 4 MG/2 ML (SDV) Z0FRAN IVP PRN (10:45)
[2018-02-27] MEDS ORDERED: morphine INJ 10 MG/ML 1ML (SYR OR VIAL) IVP ONE (10:45)
[2018-02-27 11:00] VITALS: BP 117/82
[2018-02-27 11:05] VITALS: BP 117/82
[2018-02-27 11:30] VITALS: BP 116/73
[2018-02-27] MEDS ORDERED: HYDROcodone/APAP 5 MG/325 MG (LORTAB) TAB ONE (11:59)
[2018-02-27] MEDS ORDERED: HYDROcodone/APAP 5 MG/325 MG (LORTAB) TAB PO ONE (12:00)
--- NOTE | 2018-02-27 17:32 | OPERATIVE REPORT ---
DATE OF SERVICE: 02/27/2018 PREOPERATIVE DIAGNOSES: 1. Venous insufficiency. 2. Colon cancer. POSTOPERATIVE DIAGNOSES: 1. Venous insufficiency. 2. Colon cancer. PROCEDURE PERFORMED: Insertion of Port-A-Cath, right anterior chest wall and right subclavian vein. SURGEON: Miguel Page DO. COMPUTER PROGRAMMER ANALYST: BETHEL Hernandez. ANESTHESIA: IV sedation by the anesthesiologist. SPECIMENS: None. BLOOD LOSS: Scant. FLUIDS: Per Anesthesia. POSTOPERATIVE CONDITION: Stable. INDICATION FOR PROCEDURE: The patient is a 38-year-old male who unfortunately has colon cancer. He has venous insufficiency. He will need long-term IV access for chemotherapy. FINDINGS: The patient had a Port-A-Cath placed in the right anterior chest wall and right subclavian vein. PROCEDURE NOTE: After informed consent was obtained, the patient was brought to the operating room, placed in supine position and sterilely prepped and draped in normal fashion. Local lidocaine was then used to infiltrate the right anterior chest wall to the right clavicle and then in the right anterior chest wall to create a pocket. The patient was then placed in Trendelenburg. An 18-gauge fine needle was advanced with negative inspiration and the right subclavian vein was cannulated on the first attempt. Good flash of blood, removed the syringe, placed a guidewire using Seldinger technique, it went in easily, removed the needle, checked with fluoroscopy, it was in good position. I made a stab incision at the guidewire with a #11 blade and then in the right anterior chest wall, I made an incision with #11 blade, carried down through the skin and subcutaneous tissue, then deepened down to subcutaneous tissue with Bovie electrocautery down to the pectoralis major muscles to the fascia and then over the guidewire, placed a dilator using the Seldinger technique, it went in easily, checked with fluoroscopy, it was in good position. At this point, then tunneled the catheter from this stab incision into the pocket and then removed the inner portion of the dilator sheath as well as the guidewire and then placed the catheter down the dilator sheath using Seldinger technique, checked with fluoroscopy, it was in good position. Next, removed the external dilator sheath and then attached the port to the catheter, accessed the port, got a good flash of blood and then flushed with saline and then flushed with heparin, got a good flash of blood and then flushed with 2 mL of heparin. The port was then placed into the pocket previously created, sutured down with 3-0 Prolene suture, checked with fluoroscopy, it was in good position and at this point then the subcutaneous tissue was closed with 3-0 Vicryl, 2 interrupted sutures and closed the stab incision with a 4-0 undyed Monocryl single subcuticular stitch and closed the incision for the pocket with 4-0 undyed Monocryl 3 interrupted subcuticular stitches. Area was cleaned and dried and Dermabond was placed as well as a pressure dressing. The patient tolerated the procedure and transferred to recovery room in stable condition. Sponge, instrument and needle count correct at the end of the case. Job ID: [id number] DocumentID: [id number] Dictated Date: 02/27/2018 10:21:10 Technical Document Writer Date: 02/27/2018 17:32:02 Dictated By: DO DANIELLA NICOLAS
== END 2018-02-27 12:10 | disposition home or self-care (01) ==
LOC: SDC 08:29
PROVIDERS: ATTEND Surgery
DX: I87.2 Venous insufficiency (chronic) (peripheral) (principal); C18.9 Malignant neoplasm of colon, unspecified; Z80.0 Family history of malignant neoplasm of digestive organs; E66.9 Obesity, unspecified; Z68.39 Body mass index [BMI] 39.0-39.9, adult

== ENCOUNTER → 2018-05-17 | Outpatient (RCR) | payer OTHER ==
[2018-02-21 14:26] LABS: BASOPHILS % (AUTO) 0 % (0-10); EOSINOPHILS # (AUTO) 0.7 10^3/uL (0.0-0.3); EOSINOPHILS % (AUTO) 8 % (0-10); HEMATOCRIT 41 % (40-54); LYMPHOCYTES # (AUTO) 2.7 X 10^3 (1.0-4.0); LYMPHOCYTES % (AUTO) 29 % (12-44); MEAN CORPUSCULAR HEMOGLOBIN 24 PG (25-34); MEAN CORPUSCULAR HGB CONC 32 G/DL (32-36); MEAN CORPUSCULAR VOLUME 76 FL (80-99); MONOCYTES # (AUTO) 0.7 X 10^3 (0.0-1.0); MONOCYTES % (AUTO) 8 % (0-12); NEUTROPHILS # (AUTO) 5.2 X 10^3 (1.8-7.8); NEUTROPHILS % (AUTO) 56 % (42-75); PLATELET COUNT 244 10^3/uL (130-400); RED CELL DISTRIBUTION WIDTH 17.7 % (10.0-14.5); WHITE BLOOD COUNT 9.3 10^3/uL (4.3-11.0)
[2018-02-21 14:43] LABS: ALANINE AMINOTRANSFERASE 25 U/L (0-55); ALBUMIN 4.4 GM/DL (3.2-4.5); ALKALINE PHOSPHATASE 96 U/L (40-136); BILIRUBIN,TOTAL 0.3 MG/DL (0.1-1.0); BUN/CREATININE RATIO 11; CALCIUM 9.6 MG/DL (8.5-10.1); CARBON DIOXIDE 22 MMOL/L (21-32); CHLORIDE 103 MMOL/L (98-107); CREATININE SERUM 0.76 MG/DL (0.60-1.30); GFR ESTIMATED > 60; GLUCOSE 92 MG/DL (70-105); POTASSIUM 4.1 MMOL/L (3.6-5.0); SODIUM 138 MMOL/L (135-145); TOTAL PROTEIN 8.1 GM/DL (6.4-8.2)
[2018-03-29 09:14] LABS: BASOPHILS % (AUTO) 0 % (0-10); EOSINOPHILS # (AUTO) 0.4 10^3/uL (0.0-0.3); EOSINOPHILS % (AUTO) 6 % (0-10); HEMATOCRIT 38 % (40-54); HEMOGLOBIN 12.7 G/DL (13.3-17.7); LYMPHOCYTES # (AUTO) 2.3 X 10^3 (1.0-4.0); LYMPHOCYTES % (AUTO) 35 % (12-44); MEAN CORPUSCULAR HEMOGLOBIN 26 PG (25-34); MEAN CORPUSCULAR HGB CONC 33 G/DL (32-36); MEAN CORPUSCULAR VOLUME 77 FL (80-99); MEAN PLATELET VOLUME 9.1 FL (7.4-10.4); MONOCYTES # (AUTO) 0.6 X 10^3 (0.0-1.0); MONOCYTES % (AUTO) 9 % (0-12); NEUTROPHILS # (AUTO) 3.3 X 10^3 (1.8-7.8); NEUTROPHILS % (AUTO) 51 % (42-75); PLATELET COUNT 257 10^3/uL (130-400); RED CELL DISTRIBUTION WIDTH 19.5 % (10.0-14.5); WHITE BLOOD COUNT 6.6 10^3/uL (4.3-11.0)
[2018-03-29 09:41] LABS: ALANINE AMINOTRANSFERASE 34 U/L (0-55); ALBUMIN 4.3 GM/DL (3.2-4.5); ALKALINE PHOSPHATASE 83 U/L (40-136); BILIRUBIN,TOTAL 0.4 MG/DL (0.1-1.0); BUN/CREATININE RATIO 10; CALCIUM 9.4 MG/DL (8.5-10.1); CARBON DIOXIDE 25 MMOL/L (21-32); CHLORIDE 103 MMOL/L (98-107); CREATININE SERUM 0.77 MG/DL (0.60-1.30); GFR ESTIMATED > 60; GLUCOSE 126 MG/DL (70-105); POTASSIUM 3.9 MMOL/L (3.6-5.0); SODIUM 138 MMOL/L (135-145); TOTAL PROTEIN 7.6 GM/DL (6.4-8.2)
[2018-04-05 10:39] LABS: BASOPHILS % (AUTO) 0 % (0-10); EOSINOPHILS # (AUTO) 0.3 10^3/uL (0.0-0.3); EOSINOPHILS % (AUTO) 4 % (0-10); HEMATOCRIT 40 % (40-54); LYMPHOCYTES # (AUTO) 2.2 X 10^3 (1.0-4.0); LYMPHOCYTES % (AUTO) 28 % (12-44); MEAN CORPUSCULAR HEMOGLOBIN 26 PG (25-34); MEAN CORPUSCULAR HGB CONC 33 G/DL (32-36); MEAN CORPUSCULAR VOLUME 78 FL (80-99); MEAN PLATELET VOLUME 9.5 FL (7.4-10.4); MONOCYTES # (AUTO) 0.9 X 10^3 (0.0-1.0); MONOCYTES % (AUTO) 11 % (0-12); NEUTROPHILS # (AUTO) 4.4 X 10^3 (1.8-7.8); NEUTROPHILS % (AUTO) 57 % (42-75); PLATELET COUNT 177 10^3/uL (130-400); RED CELL DISTRIBUTION WIDTH 18.6 % (10.0-14.5); WHITE BLOOD COUNT 7.7 10^3/uL (4.3-11.0)
[2018-04-05 10:58] LABS: BUN/CREATININE RATIO 17; CALCIUM 9.5 MG/DL (8.5-10.1); CARBON DIOXIDE 26 MMOL/L (21-32); CHLORIDE 104 MMOL/L (98-107); CREATININE SERUM 0.82 MG/DL (0.60-1.30); GFR ESTIMATED > 60; GLUCOSE 103 MG/DL (70-105); SODIUM 140 MMOL/L (135-145)
[2018-04-12 10:39] LABS: BASOPHILS % (AUTO) 0 % (0-10); EOSINOPHILS # (AUTO) 0.1 10^3/uL (0.0-0.3); EOSINOPHILS % (AUTO) 3 % (0-10); HEMATOCRIT 38 % (40-54); HEMOGLOBIN 13.2 G/DL (13.3-17.7); LYMPHOCYTES # (AUTO) 1.5 X 10^3 (1.0-4.0); LYMPHOCYTES % (AUTO) 31 % (12-44); MEAN CORPUSCULAR HEMOGLOBIN 27 PG (25-34); MEAN CORPUSCULAR HGB CONC 35 G/DL (32-36); MEAN CORPUSCULAR VOLUME 78 FL (80-99); MEAN PLATELET VOLUME 9.3 FL (7.4-10.4); MONOCYTES # (AUTO) 0.3 X 10^3 (0.0-1.0); MONOCYTES % (AUTO) 7 % (0-12); NEUTROPHILS # (AUTO) 2.8 X 10^3 (1.8-7.8); NEUTROPHILS % (AUTO) 59 % (42-75); PLATELET COUNT 211 10^3/uL (130-400); RED CELL DISTRIBUTION WIDTH 20.2 % (10.0-14.5); WHITE BLOOD COUNT 4.7 10^3/uL (4.3-11.0)
[2018-04-12 10:51] LABS: BUN/CREATININE RATIO 14; CALCIUM 9.6 MG/DL (8.5-10.1); CARBON DIOXIDE 26 MMOL/L (21-32); CHLORIDE 106 MMOL/L (98-107); CREATININE SERUM 0.71 MG/DL (0.60-1.30); GFR ESTIMATED > 60; GLUCOSE 122 MG/DL (70-105); POTASSIUM 3.7 MMOL/L (3.6-5.0); SODIUM 141 MMOL/L (135-145)
[2018-04-19 10:03] LABS: BASOPHILS % (AUTO) 1 % (0-10); EOSINOPHILS # (AUTO) 0.2 10^3/uL (0.0-0.3); EOSINOPHILS % (AUTO) 4 % (0-10); HEMATOCRIT 38 % (40-54); HEMOGLOBIN 12.6 G/DL (13.3-17.7); LYMPHOCYTES % (AUTO) 36 % (12-44); MEAN CORPUSCULAR HEMOGLOBIN 27 PG (25-34); MEAN CORPUSCULAR HGB CONC 34 G/DL (32-36); MEAN CORPUSCULAR VOLUME 80 FL (80-99); MEAN PLATELET VOLUME 9.2 FL (7.4-10.4); MONOCYTES # (AUTO) 0.6 X 10^3 (0.0-1.0); MONOCYTES % (AUTO) 11 % (0-12); NEUTROPHILS # (AUTO) 2.8 X 10^3 (1.8-7.8); NEUTROPHILS % (AUTO) 49 % (42-75); PLATELET COUNT 203 10^3/uL (130-400); RED CELL DISTRIBUTION WIDTH 21.6 % (10.0-14.5); WHITE BLOOD COUNT 5.6 10^3/uL (4.3-11.0)
[2018-04-19 10:25] LABS: ALANINE AMINOTRANSFERASE 75 U/L (0-55); ALBUMIN 4.1 GM/DL (3.2-4.5); ALKALINE PHOSPHATASE 96 U/L (40-136); BILIRUBIN,TOTAL 0.5 MG/DL (0.1-1.0); BUN/CREATININE RATIO 13; CALCIUM 9.2 MG/DL (8.5-10.1); CARBON DIOXIDE 24 MMOL/L (21-32); CHLORIDE 105 MMOL/L (98-107); CREATININE SERUM 0.72 MG/DL (0.60-1.30); GFR ESTIMATED > 60; GLUCOSE 113 MG/DL (70-105); POTASSIUM 3.8 MMOL/L (3.6-5.0); SODIUM 140 MMOL/L (135-145); TOTAL PROTEIN 7.6 GM/DL (6.4-8.2)
[2018-04-26 09:57] LABS: BASOPHILS % (AUTO) 0 % (0-10); EOSINOPHILS # (AUTO) 0.2 10^3/uL (0.0-0.3); EOSINOPHILS % (AUTO) 3 % (0-10); HEMATOCRIT 41 % (40-54); HEMOGLOBIN 13.7 G/DL (13.3-17.7); LYMPHOCYTES # (AUTO) 1.9 X 10^3 (1.0-4.0); LYMPHOCYTES % (AUTO) 26 % (12-44); MEAN CORPUSCULAR HEMOGLOBIN 27 PG (25-34); MEAN CORPUSCULAR HGB CONC 34 G/DL (32-36); MEAN CORPUSCULAR VOLUME 80 FL (80-99); MEAN PLATELET VOLUME 9.4 FL (7.4-10.4); MONOCYTES # (AUTO) 0.8 X 10^3 (0.0-1.0); MONOCYTES % (AUTO) 11 % (0-12); NEUTROPHILS # (AUTO) 4.4 X 10^3 (1.8-7.8); NEUTROPHILS % (AUTO) 61 % (42-75); PLATELET COUNT 155 10^3/uL (130-400); RED CELL DISTRIBUTION WIDTH 20.3 % (10.0-14.5); WHITE BLOOD COUNT 7.2 10^3/uL (4.3-11.0)
[2018-04-26 10:26] LABS: ALANINE AMINOTRANSFERASE 44 U/L (0-55); ALBUMIN 4.4 GM/DL (3.2-4.5); ALKALINE PHOSPHATASE 99 U/L (40-136); BILIRUBIN,TOTAL 0.7 MG/DL (0.1-1.0); BUN/CREATININE RATIO 12; CALCIUM 9.9 MG/DL (8.5-10.1); CARBON DIOXIDE 27 MMOL/L (21-32); CHLORIDE 104 MMOL/L (98-107); CREATININE SERUM 0.97 MG/DL (0.60-1.30); GFR ESTIMATED > 60; GLUCOSE 112 MG/DL (70-105); POTASSIUM 3.8 MMOL/L (3.6-5.0); SODIUM 141 MMOL/L (135-145); TOTAL PROTEIN 8.2 GM/DL (6.4-8.2)
[2018-05-03 09:38] LABS: BASOPHILS % (AUTO) 0 % (0-10); EOSINOPHILS # (AUTO) 0.1 10^3/uL (0.0-0.3); EOSINOPHILS % (AUTO) 2 % (0-10); HEMATOCRIT 37 % (40-54); HEMOGLOBIN 12.6 G/DL (13.3-17.7); LYMPHOCYTES # (AUTO) 1.5 X 10^3 (1.0-4.0); LYMPHOCYTES % (AUTO) 34 % (12-44); MEAN CORPUSCULAR HEMOGLOBIN 28 PG (25-34); MEAN CORPUSCULAR HGB CONC 34 G/DL (32-36); MEAN CORPUSCULAR VOLUME 82 FL (80-99); MEAN PLATELET VOLUME 9.2 FL (7.4-10.4); MONOCYTES # (AUTO) 0.4 X 10^3 (0.0-1.0); MONOCYTES % (AUTO) 8 % (0-12); NEUTROPHILS # (AUTO) 2.5 X 10^3 (1.8-7.8); NEUTROPHILS % (AUTO) 55 % (42-75); PLATELET COUNT 164 10^3/uL (130-400); RED CELL DISTRIBUTION WIDTH 21.4 % (10.0-14.5); WHITE BLOOD COUNT 4.5 10^3/uL (4.3-11.0)
[2018-05-03 10:01] LABS: BUN/CREATININE RATIO 12; CALCIUM 9.4 MG/DL (8.5-10.1); CARBON DIOXIDE 27 MMOL/L (21-32); CHLORIDE 105 MMOL/L (98-107); CREATININE SERUM 0.75 MG/DL (0.60-1.30); GFR ESTIMATED > 60; GLUCOSE 136 MG/DL (70-105); POTASSIUM 3.8 MMOL/L (3.6-5.0); SODIUM 142 MMOL/L (135-145)
[2018-05-10 09:50] LABS: BASOPHILS % (AUTO) 0 % (0-10); EOSINOPHILS # (AUTO) 0.2 10^3/uL (0.0-0.3); EOSINOPHILS % (AUTO) 3 % (0-10); HEMATOCRIT 38 % (40-54); HEMOGLOBIN 12.8 G/DL (13.3-17.7); LYMPHOCYTES # (AUTO) 1.7 X 10^3 (1.0-4.0); LYMPHOCYTES % (AUTO) 36 % (12-44); MEAN CORPUSCULAR HEMOGLOBIN 28 PG (25-34); MEAN CORPUSCULAR HGB CONC 34 G/DL (32-36); MEAN CORPUSCULAR VOLUME 83 FL (80-99); MONOCYTES # (AUTO) 0.6 X 10^3 (0.0-1.0); MONOCYTES % (AUTO) 13 % (0-12); NEUTROPHILS # (AUTO) 2.2 X 10^3 (1.8-7.8); NEUTROPHILS % (AUTO) 48 % (42-75); PLATELET COUNT 197 10^3/uL (130-400); RED CELL DISTRIBUTION WIDTH 22.6 % (10.0-14.5); WHITE BLOOD COUNT 4.7 10^3/uL (4.3-11.0)
[2018-05-10 10:05] LABS: ALANINE AMINOTRANSFERASE 79 U/L (0-55); ALKALINE PHOSPHATASE 95 U/L (40-136); BILIRUBIN,TOTAL 0.6 MG/DL (0.1-1.0); BUN/CREATININE RATIO 10; CALCIUM 9.4 MG/DL (8.5-10.1); CARBON DIOXIDE 27 MMOL/L (21-32); CHLORIDE 105 MMOL/L (98-107); CREATININE SERUM 0.72 MG/DL (0.60-1.30); GFR ESTIMATED > 60; GLUCOSE 137 MG/DL (70-105); POTASSIUM 3.9 MMOL/L (3.6-5.0); SODIUM 138 MMOL/L (135-145); TOTAL PROTEIN 7.8 GM/DL (6.4-8.2)
[~2018-05-17] VITALS: Ht 170.2 cm; Wt 109.8 kg
[~2018-05-17] MED LIST changes: +ACHD5005 PO; +D5W 500 ML IV (CANCER CTR) 500 ML IV SCH; +D5W IV SCH; +FOSAPREPITANT DIMEGLUMINE 150 MG in NS (IVPB) CANCER CENTER ONLY 150 ML IV PRN; +FOSAPREPITANT DIMEGLUMINE 150 MG in NS (IVPB) CANCER CENTER ONLY 150 ML IV SCH; +OXALIPLATIN IV SCH; +PALONOSETRON HCL 0.25 MG, DEXAMETHASONE INJECTION 10 MG in NS (IVPB) CANCER CENTER 50 ML IV SCH
[2018-05-17 09:25] LABS: BASOPHILS % (AUTO) 0 % (0-10); EOSINOPHILS # (AUTO) 0.2 10^3/uL (0.0-0.3); EOSINOPHILS % (AUTO) 3 % (0-10); HEMATOCRIT 40 % (40-54); HEMOGLOBIN 14.1 G/DL (13.3-17.7); LYMPHOCYTES # (AUTO) 2.2 X 10^3 (1.0-4.0); LYMPHOCYTES % (AUTO) 25 % (12-44); MEAN CORPUSCULAR HEMOGLOBIN 29 PG (25-34); MEAN CORPUSCULAR HGB CONC 35 G/DL (32-36); MEAN CORPUSCULAR VOLUME 84 FL (80-99); MONOCYTES % (AUTO) 12 % (0-12); NEUTROPHILS # (AUTO) 5.4 X 10^3 (1.8-7.8); NEUTROPHILS % (AUTO) 61 % (42-75); PLATELET COUNT 138 10^3/uL (130-400); RED CELL DISTRIBUTION WIDTH 21.8 % (10.0-14.5); WHITE BLOOD COUNT 8.8 10^3/uL (4.3-11.0)
[2018-05-17 09:41] LABS: BUN/CREATININE RATIO 11; CALCIUM 9.8 MG/DL (8.5-10.1); CARBON DIOXIDE 27 MMOL/L (21-32); CHLORIDE 103 MMOL/L (98-107); CREATININE SERUM 0.94 MG/DL (0.60-1.30); GFR ESTIMATED > 60; GLUCOSE 109 MG/DL (70-105); POTASSIUM 3.8 MMOL/L (3.6-5.0); SODIUM 140 MMOL/L (135-145)
== END | disposition home or self-care (01) ==
LOC: ONC 02-16 15:10
PROVIDERS: ATTEND Internal Medicine Hematology & Oncology
DX: C18.6 Malignant neoplasm of descending colon (principal); I87.2 Venous insufficiency (chronic) (peripheral)
CPT/HCPCS: 36415; 36591; 80048; 80053; 82378; 85025; 96367; 96375; 96413; 96415; 99213; 99214

== ENCOUNTER 2018-05-25 05:55 | Outpatient (CLI) | payer OTHER ==
[~2018-05-25] VITALS: Ht 170.2 cm; Wt 114.4 kg
[~2018-05-25 05:55] MED LIST changes: -D5W 500 ML IV (CANCER CTR) 500 ML IV SCH; -D5W IV SCH; -FOSAPREPITANT DIMEGLUMINE 150 MG in NS (IVPB) CANCER CENTER ONLY 150 ML IV PRN; -FOSAPREPITANT DIMEGLUMINE 150 MG in NS (IVPB) CANCER CENTER ONLY 150 ML IV SCH; -OXALIPLATIN IV SCH; -PALONOSETRON HCL 0.25 MG, DEXAMETHASONE INJECTION 10 MG in NS (IVPB) CANCER CENTER 50 ML IV SCH
== END 2018-05-25 14:50 | disposition home or self-care (01) ==
LOC: PREOP 05:55
PROVIDERS: ATTEND Surgery
DX: Z01.818 Encounter for other preprocedural examination (principal)

== ENCOUNTER 2018-05-29 06:00 | Day surgery (SDC) | payer OTHER ==
[~2018-05-29] VITALS: Ht 170.2 cm; Wt 114.4 kg
[2018-05-29] MEDS ORDERED: LACTATED RINGERS 1,000 ML IV PRN (06:11)
[2018-05-29 06:15] VITALS: BP 128/94
[2018-05-29] MEDS ORDERED: ceFAZolin 2 GM IV Premixed 50 ML IV ONE (06:15)
[2018-05-29] MEDS ORDERED: proPOfol 200 MG/20 ML (DIPRIVAN) VIAL IV ONE ×2 (06:45→08:51)
[2018-05-29] MEDS ORDERED: MIDAZOLAM 2 MG/2 ML (VERSED) VIAL ONE (06:45)
[2018-05-29] MEDS ORDERED: LIDOCAINE PF 2% 5 ML (XYLOCAINE) VIAL ONE (06:45)
[2018-05-29] MEDS ORDERED: ONDA4TAB11 PO (06:54)
[2018-05-29] MEDS ORDERED: LIDOCAINE 1% INJ 20 ML 20 ML VIAL ONE (07:15)
[2018-05-29] MEDS ORDERED: BUP/EPI 0.5% 1:200,000 (SENSORCAINE) 30 ML VIAL ONE (07:15)
--- NOTE | 2018-05-29 08:29 | Progress Note-Pre Operative ---
Pre-Operative Progress Note H&P Reviewed The H&P was reviewed, patient examined and no changes noted. Time Seen by Provider: 08:22 Date H&P Reviewed: May 29, 2018 Time H&P Reviewed: 08:23 Pre-Operative Diagnosis: Venous Insufficiency FRANCES MATTHEWS DO May 29, 2018 08:29
[2018-05-29] MEDS ORDERED: KETAMINE HCL 100 MG/ML 5 ML VIAL ONE (08:30)
--- NOTE | 2018-05-29 08:57 | Progress Note-Post Operative ---
Post-Operative Progess Note Surgeon (s)/Rigging Loft Mechanic (s) Surgeon FRANCES MATTHEWS DO Rigging Loft Mechanic: none Pre-Operative Diagnosis Venous Insufficiency Post-Operative Diagnosis same Procedure & Operative Findings Date of Procedure 05/29/18 Procedure Performed/Findings Shira-cath removal Anesthesia Type MAC Estimated Blood Loss Estimated blood loss (mL): scant Specimens/Packing Specimens Removed port and capsule FRANCES MATTHEWS DO May 29, 2018 08:57
[2018-05-29] MEDS ORDERED: ACHD5005 PO (09:00)
--- NOTE | 2018-05-29 09:01 | Discharge Inst-Surgical ---
Discharge Inst-Surgical Depart Medication/Instructions New, Converted or Re-Newed RX: RX Given to Pt/Family Patient Instructions Follow up Appt: Make appointment for 1 week. [phone] Instructions: No strenuous activity. May shower in 24 hours, no tub bath or soaking. Use incentive spirometer at home as directed. No Smoking Skin/Wound Care: May remove bandages in am. You need to leave the Dermabond on incision it will fall off on it's own. Symptoms to Report: Appetite Changes, Extremity Discoloration, Numbness/Tingling, Swelling Increased , Bleeding Excessive, Eyesight Changes, Pain Increased, Urine Color Change, Constipation(Persistent), Fever over 101 degree F, Pain/Pressure in chest, Urinating Difficulty, Cough Up/Vomit Blood, Heart Beat Irreg/Pounding, Pain/ Pressure in jaw, Cramps in feet or legs, Lightheadedness, Pain/Pressure in shoulder, Diarrhea(Persistent), Memory Changes Suddenly, Questions/Concerns, Weight gain consecutive days, Dizziness/Fainting, Nausea/Vomiting, Shortness of Breath, Weight gain over 2 pounds If questions or concerns contact your physician Or seek help at emergency department. Activity Activity as Tolerated: Yes Activity Instructions: Avoid Stress to Incision Driving Instructions: No Driving/Refer to Dr. Gonsalez Discharge Diet: No Restrictions Diet After 24 Hours: Clear Liquid if Nauseous If Any Problems/Questions/Issu: Contact Your Physician, Go to Emergency Room Skin/Wound Care Infection Signs and Symptoms: Increased Redness, Foul Odor of Wound, Increased Drainage, Skin Itchy or Has a Rash, Increased Swelling, Temperature Above 101 F Bathing Instructions: Shower Stitches/Caio/Dermabond Dis: Dermabond Ice Pack: Ice On and Off Site FRANCES MATTHEWS DO May 29, 2018 09:01
[2018-05-29] MEDS ORDERED: ONDANSETRON 4 MG/2 ML (SDV) Z0FRAN IVP PRN (09:15)
[2018-05-29] MEDS ORDERED: HYDROmorphone 2 MG/ML VIAL (DILAUDID) IV ONE (09:15)
[2018-05-29 09:30] VITALS: BP 119/88
[2018-05-29 09:35] VITALS: BP 119/88
[2018-05-29 10:00] VITALS: BP 123/82
--- NOTE | 2018-05-29 10:20 | NUR ---
PT. LEFT AT 1020 INSTEAD OF 1040 PUT IN DISCHARGE
--- NOTE | 2018-05-29 14:05 | Anesthesia-General Post-Op ---
MAC Patient Condition Mental Status/LOC: Same as Preop Cardiovascular: Satisfactory Nausea/Vomiting: Absent Respiratory: Satisfactory Pain: Controlled Complications: Absent Post Op Complications Complications None Follow Up Care/Instructions Patient Instructions None needed. Anesthesiology Discharge Order Discharge Order Patient is doing well, no complaints, stable vital signs, no apparent adverse anesthesia problems. No complications reported per nursing. ARLEN LAND CRNA May 29, 2018 14:05
--- NOTE | 2018-05-30 03:32 | OPERATIVE REPORT ---
DATE OF SERVICE: PREOPERATIVE DIAGNOSES: 1. Venous insufficiency and history of colon cancer. 2. Keloid. POSTOPERATIVE DIAGNOSES: 1. Venous insufficiency and history of colon cancer. 2. Keloid. PROCEDURES: 1. Port-A-Cath removal. 2. Scar revision. SURGEON: Miguel Page DO GAS CONTROLLER: None. ANESTHESIA: MAC by the BUSINESS AND FINANCIAL COUNSEL. BLOOD LOSS: Scant. SPECIMEN: Keloid scar. FLUIDS: Per anesthesia. POSTOPERATIVE CONDITION: Stable. INDICATION FOR PROCEDURE: The patient is a 38-year-old male who has unfortunately had colon cancer, had a port placed for chemotherapy. He no longer needs that port and want it removed. Also, he has a keloid scar and he needed this fixed. FINDINGS: The patient had a Port-A-Cath removed out of the right anterior chest wall and a keloid scar for scar revision was removed, measured about 3 cm long x about 4 mm tall. PROCEDURE NOTE: After informed consent was obtained, the patient was brought to the operating room, placed on the table in supine position. He was sterilely prepped and draped in normal fashion. Local lidocaine was used to infiltrate under the keloid scar as well as around the Port-A-Cath, then made an elliptical incision. This incision measured about 4 cm long x about a 6 mm wide to remove the keloid scar. Once this was removed, able to start dissecting down through the subcutaneous tissue down to the port, able to grasp the port with hemostats and then pulled the catheter up. Once the catheter was secured, cut the Prolene suture that was holding the port in place and then carefully cut the port out as well as taking the capsule out passed this off table and sent to pathology, irrigated with saline. Hemostasis obtained using Bovie electrocautery and then elected to close the incision, closing the subcutaneous tissue with 3-0 Vicryl, 2 interrupted sutures and closed the skin with 4-0 undyed Monocryl running subcuticular fashion. Area was cleaned and dried and pressure dressing placed. The patient then transferred to recovery room in stable condition. Sponge, instrument and needle count correct at the end of the case. Job ID: [id number] DocumentID: [id number] Dictated Date: 05/29/2018 16:00:12 Screw Machine Set Up Operator Date: 05/30/2018 03:31:32 Dictated By: MIGUEL PAGE DO
== END 2018-05-29 10:40 | disposition home or self-care (01) ==
LOC: SDC 06:00
PROVIDERS: ATTEND Surgery
DX: I87.2 Venous insufficiency (chronic) (peripheral) (principal); Z85.038 Personal history of other malignant neoplasm of large intestine; L91.0 Hypertrophic scar; Z11.2 Encounter for screening for other bacterial diseases; E66.01 Morbid (severe) obesity due to excess calories; Z68.39 Body mass index [BMI] 39.0-39.9, adult
CPT/HCPCS: 87081

== ENCOUNTER 2018-05-31 08:38 | Outpatient (RCR) | payer SELFPAY ==
[2018-05-24 08:36] LABS: BASOPHILS % (AUTO) 0 % (0-10); EOSINOPHILS # (AUTO) 0.2 10^3/uL (0.0-0.3); EOSINOPHILS % (AUTO) 3 % (0-10); HEMATOCRIT 36 % (40-54); HEMOGLOBIN 12.4 G/DL (13.3-17.7); LYMPHOCYTES # (AUTO) 1.8 X 10^3 (1.0-4.0); LYMPHOCYTES % (AUTO) 36 % (12-44); MEAN CORPUSCULAR HEMOGLOBIN 30 PG (25-34); MEAN CORPUSCULAR HGB CONC 35 G/DL (32-36); MEAN CORPUSCULAR VOLUME 85 FL (80-99); MEAN PLATELET VOLUME 9.6 FL (7.4-10.4); MONOCYTES # (AUTO) 0.5 X 10^3 (0.0-1.0); MONOCYTES % (AUTO) 10 % (0-12); NEUTROPHILS # (AUTO) 2.5 X 10^3 (1.8-7.8); NEUTROPHILS % (AUTO) 50 % (42-75); PLATELET COUNT 134 10^3/uL (130-400); RED CELL DISTRIBUTION WIDTH 22.4 % (10.0-14.5)
[2018-05-24 08:58] LABS: BUN/CREATININE RATIO 10; CALCIUM 9.5 MG/DL (8.5-10.1); CARBON DIOXIDE 24 MMOL/L (21-32); CHLORIDE 106 MMOL/L (98-107); GFR ESTIMATED > 60; GLUCOSE 93 MG/DL (70-105); POTASSIUM 3.7 MMOL/L (3.6-5.0); SODIUM 140 MMOL/L (135-145)
[~2018-05-31 08:38] MED LIST changes: +ONDA4TAB11 PO
[2018-05-31 09:00] LABS: BASOPHILS % (AUTO) 0 % (0-10); EOSINOPHILS # (AUTO) 0.2 10^3/uL (0.0-0.3); EOSINOPHILS % (AUTO) 4 % (0-10); HEMATOCRIT 36 % (40-54); HEMOGLOBIN 12.3 G/DL (13.3-17.7); LYMPHOCYTES # (AUTO) 1.7 X 10^3 (1.0-4.0); LYMPHOCYTES % (AUTO) 33 % (12-44); MEAN CORPUSCULAR HEMOGLOBIN 30 PG (25-34); MEAN CORPUSCULAR HGB CONC 34 G/DL (32-36); MEAN CORPUSCULAR VOLUME 87 FL (80-99); MEAN PLATELET VOLUME 9.2 FL (7.4-10.4); MONOCYTES # (AUTO) 0.6 X 10^3 (0.0-1.0); MONOCYTES % (AUTO) 11 % (0-12); NEUTROPHILS # (AUTO) 2.7 X 10^3 (1.8-7.8); NEUTROPHILS % (AUTO) 52 % (42-75); PLATELET COUNT 166 10^3/uL (130-400); RED CELL DISTRIBUTION WIDTH 23.8 % (10.0-14.5); WHITE BLOOD COUNT 5.2 10^3/uL (4.3-11.0)
[2018-05-31 09:21] LABS: ALANINE AMINOTRANSFERASE 85 U/L (0-55); ALBUMIN 3.8 GM/DL (3.2-4.5); ALKALINE PHOSPHATASE 105 U/L (40-136); BILIRUBIN,TOTAL 0.6 MG/DL (0.1-1.0); BUN/CREATININE RATIO 15; CALCIUM 9.1 MG/DL (8.5-10.1); CARBON DIOXIDE 25 MMOL/L (21-32); CHLORIDE 104 MMOL/L (98-107); CREATININE SERUM 0.67 MG/DL (0.60-1.30); GFR ESTIMATED > 60; GLUCOSE 95 MG/DL (70-105); POTASSIUM 3.5 MMOL/L (3.6-5.0); SODIUM 140 MMOL/L (135-145); TOTAL PROTEIN 7.6 GM/DL (6.4-8.2)
== END 2018-08-22 | disposition home or self-care (01) ==
LOC: ONC 08:38
PROVIDERS: ATTEND Internal Medicine Hematology & Oncology
DX: C18.6 Malignant neoplasm of descending colon (principal); I87.2 Venous insufficiency (chronic) (peripheral)
CPT/HCPCS: 36415; 80048; 80053; 85025; 99213

== ENCOUNTER 2018-12-27 14:00 | Outpatient (CLI) | payer OTHER ==
[~2018-12-27] VITALS: Ht 170.2 cm; Wt 114.4 kg
== END 2018-12-27 16:00 | disposition home or self-care (01) ==
LOC: PREOP 14:00
PROVIDERS: ATTEND Surgery
DX: Z01.818 Encounter for other preprocedural examination (principal)

== ENCOUNTER 2019-01-01 09:04 | Day surgery (SDC) | payer OTHER ==
[~2019-01-01] VITALS: Ht 170 cm; Wt 120.9 kg
[~2019-01-01 09:04] MED LIST changes: +LACTATED RINGERS 1,000 ML IV ONE
[2019-01-01] MEDS ORDERED: LACTATED RINGERS 1,000 ML IV STA (09:13)
[2019-01-01 09:19] VITALS: BP 136/86
--- NOTE | 2019-01-01 10:20 | Progress Note-Pre Operative ---
Pre-Operative Progress Note H&P Reviewed The H&P was reviewed, patient examined and no changes noted. Time Seen by Provider: 10:14 Date H&P Reviewed: Jan 01, 2019 Time H&P Reviewed: 10:11 Pre-Operative Diagnosis: surveillance colonoscopy FRANCES MATTHEWS DO Jan 01, 2019 10:20
[2019-01-01] MEDS ORDERED: PROPOFOL INJECTION 50 ML IV ONE (10:38)
[2019-01-01] MEDS ORDERED: MIDAZOLAM 2 MG/2 ML (VERSED) VIAL ONE (10:38)
[2019-01-01 10:45] VITALS: BP 99/57
[2019-01-01 10:50] VITALS: BP 107/58
--- NOTE | 2019-01-01 10:50 | Progress Note-Post Operative ---
Post-Operative Progess Note Surgeon (s)/Dispatch Associate (s) Surgeon FRANCES MATTHEWS DO Dispatch Associate: Carrie Brand MSIII Pre-Operative Diagnosis surveillance colonoscopy Post-Operative Diagnosis same plus internal hemorrhoids Procedure & Operative Findings Date of Procedure 01/01/19 Procedure Performed/Findings colon Anesthesia Type IV sedation by DIE CASTER Estimated Blood Loss Estimated blood loss (mL): none Specimens/Packing Specimens Removed none FRANCES MATTHEWS DO Jan 01, 2019 10:50
--- NOTE | 2019-01-01 10:54 | Endoscopy Discharge Instruct ---
Endo Procedure/Findings Findings 1.: Internal Hemorrhoids Discharge Instructions - Activity: You might feel a little sleepy until tomorrow. This is due to the me dicine you received to relax you. Until tomorrow, you should: NOT drive a car, operate machinery or power tools. NOT drink any alcoholic beverages. NOT make any important decisions or sign importortant papers. Do not return to work until tomorrow, unless otherwise instructed. Resume previous activities tomorrow. Diet: Start by taking liquids. If you tolerate liquids, advance to solid food. make an appointment for one week 1.: Colonoscopy in 1 year Notify Physician - If you experience excessive bleeding, unusual abdominal pain, fever, or chest pain, contact your doctor immediately. FRANCES MATTHEWS DO Jan 01, 2019 10:54
[2019-01-01 10:55] VITALS: BP 126/60
[2019-01-01 11:25] VITALS: BP 123/83
[2019-01-01 12:00] VITALS: BP 123/83
--- NOTE | 2019-01-01 15:30 | Anesthesia-General Post-Op ---
MAC Patient Condition Mental Status/LOC: Same as Preop Cardiovascular: Satisfactory Nausea/Vomiting: Absent Respiratory: Satisfactory Pain: Controlled Complications: Absent Post Op Complications Complications None Follow Up Care/Instructions Patient Instructions None needed. Anesthesiology Discharge Order Discharge Order Patient is doing well, no complaints, stable vital signs, no apparent adverse anesthesia problems. No complications reported per nursing. ENRIKE CALDERON CRNA Jan 01, 2019 15:30
--- NOTE | 2019-01-01 21:46 | OPERATIVE REPORT ---
DATE OF SERVICE: PREOPERATIVE DIAGNOSIS: Personal history of colon cancer. POSTOPERATIVE DIAGNOSES: 1. Personal history of colon cancer. 2. Internal hemorrhoids. PROCEDURE: Colonoscopy. SURGEON: Miguel Page DO TELEVISION AUDIO ENGINEER: None. ANESTHESIA: IV sedation by the REGISTERED RADIOLOGIC TECHNOLOGIST. SPECIMENS: None. BLOOD LOSS: None. FLUIDS: Per anesthesia. POSTOPERATIVE CONDITION: Stable. INDICATION FOR PROCEDURE: The patient is a 38-year-old male who unfortunately about a year ago had a colonoscopy for rectal bleeding and found colon cancer. He underwent a surgical resection, now is 1 year out and needed a surveillance colonoscopy. FINDINGS: The patient had some small internal hemorrhoids, but no other obvious pathology seen in the colon. PROCEDURE NOTE: After informed consent was obtained, the patient was brought to the endoscopy suite and placed in the left lateral decubitus position. He was administered IV sedation by the REGISTERED RADIOLOGIC TECHNOLOGIST who monitored his vitals the entire time, heart rate, blood pressure and pulse ox and the scope was inserted, pushed into the rectum and then in the rectum, saw the anastomosis took a picture and then pushed all the way to about 130 cm, able to get to the cecum, took a picture of appendiceal orifice, noted the ileocecal valve and then slowly withdrew the scope insufflating the circumferential wall looking at the cecum, up the ascending colon to the hepatic flexure, then down the transverse colon to the splenic flexure, into the descending colon, most of the descending colon and sigmoid were gone secondary to colon resection, but down through this area and then into the rectum, retroflexed the rectal vault, saw some minimal internal hemorrhoids, took a picture of this and then removed the scope. The patient tolerated the procedure. He was recovered in endoscopy suite. Job ID: [id number] DocumentID: [id number] Dictated Date: 01/01/2019 17:38:25 Digital Publishing Specialist Date: 01/01/2019 21:45:53 Dictated By: MIGUEL PAGE DO
== END 2019-01-01 12:05 | disposition home or self-care (01) ==
LOC: ENDO 09:04
PROVIDERS: ATTEND Surgery
DX: K64.8 Other hemorrhoids (principal); Z85.038 Personal history of other malignant neoplasm of large intestine; Z90.49 Acquired absence of other specified parts of digestive tract; Z80.42 Family history of malignant neoplasm of prostate; Z80.0 Family history of malignant neoplasm of digestive organs; Z83.3 Family history of diabetes mellitus; Z82.49 Family history of ischemic heart disease and other diseases of the circulatory system